=== PATIENT | male | born 1960 | race Hispanic/Latino ===

== ENCOUNTER 2025-02-20 09:34 | Emergency (ER) | payer OTHER, MEDICARE ==
[~2025-02-20] VITALS: Ht 180.3 cm; Wt 140.6 kg
[2025-02-20 09:55] VITALS: TEMP 98.2
[2025-02-20 10:10] LABS: IMMATURE GRANULOCYTE ABSOLUTE 0.02 K/uL (0-1); NUCLEATED RED BLOOD CELLS 0.0 % (0.0-0.19); PLATELET COUNT (AUTO) 354 K/uL (130-400); RED BLOOD CELL COUNT(AUTO) 5.11 MIL/uL (4.50-6.20); RED CELL DISTRIBUTION WIDTH 13.4 % (11.0-15.5); WHITE BLOOD COUNT (AUTO) 6.9 K/uL (4.8-10.8)
--- NOTE | 2025-02-20 10:17 | ERN ---
ED Note History of Present Illness Stated Complaint: CHEST PAIN TO LEFT SIDE Chief Complaint: Chest Pain Time Seen by MD: 10:05 Dictation: Patient is a 65-year-old male here with complaints of having a left chest wall spasm while he was driving this morning. He states it happened x2. he denies any radiation to his arm jaw back no nausea no vomiting. 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 He said he told him to come back in a month. He said that the doctor told him if he ever felt worse to go to the emergency room. He is moving here from [facility] in his going back for a 2nd opinion next week just wanted to stop in the make sure he was not having an acute myocardial infarction. Allergies: Coded Allergies: Penicillins (Unverified Allergy, Unknown, 02/20/25) aspirin (Unverified Allergy, Unknown, 02/20/25) Past Medical History Past Medical History: High Cholesterol, Hypertension Surgical History: None RN Note Reviewed/Agreed w/PFSH: Yes Review of System Dictation CONSTITUTIONAL: Negative except for HPI HEAD/FACE: Negative except for HPI EENT: Negative except for HPI RESPIRATORY: Negative except for HPI left chest pain GASTROINTESTINAL/ABDOMINAL: Negative except for HPI GENITOURINARY: Negative except for HPI MUSCULOSKELETAL: Negative except for HPI INTEGUMENTARY: Negative except for HPI NEUROLOGICAL/PSYCH: Negative except for HPI HEMATOLOGIC/LYMPHATIC: Negative except for HPI All Systems Negative, Except as noted above. 13 point review of systems assessed and all negative except for above. Initial Vital Sign VS Vital Signs Date Time Temp Pulse Resp B/P (MAP) Pulse Ox O2 Delivery O2 Flow Rate FiO2 02/20/25 09:36 98.1 72 19 119/64 96 Room Air 0 02/20/25 09:55 21 Physical Exam Dictation Vital Signs reviewed General Appearance: Alert, oriented x 3, no acute distress, well developed, nourished. No pain at this time. Head and Face: non-traumatic. Eyes: PERRL, pink conjunctivas, eyelid no trauma, anterior chamber with arcus senilis. Ears: Pinnas intact and no signs of trauma or erythema ear canals clear and no discharge TM no erythema Nose: No discharge, no bleeding. Oropharynx: Mouth normal, tongue pink, pharynx clear,no erythema, tonsils no exudates, no abscesses noted, mucous membrane moist Neck: Supple, non-tender, no thyromegaly, no masses, no JVD, no bruits Breast:Deferred Chest:No tenderness, no crepitus, no paradoxical movement, no retractions Lungs:Clear, well-ventilated, symmetric, no rales, no wheezing, no rhonchi, no stridor, good breath sounds bilaterally Heart: Regular rate, regular rhythm, no murmur, no gallops Vascular: no peripheral edema, Abdomen: Soft, positive bowel sounds, nondistended, no guarding, nontender, no rebound, no masses no hepatomegaly, no splenomegaly, no Gan's sign, no hernias. Rectal: Deferred Genital: Deferred Neurological: Normal speech, motor function intact, sensory function intact Musculoskeletal: Neck nontender, full range of motion, back nontender, full range of motion, Extremities: nontender, full range of motion Skin: Color pink, dry, no turgor, no rash, no lacerations, no abrasions, no contusions. Lymphatic: Deferred Results (Laboratory/Radiology) Laboratory/Radiology Laboratory Tests Test 02/20/25 09:55 02/20/25 10:18 02/20/25 10:52 White Blood Count 6.9 K/uL (4.8-10.8) Red Blood Count 5.11 MIL/uL (4.50-6.20) Hemoglobin 16.0 g/dL (14.0-18.0) Hematocrit 44.9 % (42-54) Mean Corpuscular Volume 87.9 fL (79-99) Mean Corpuscular Hemoglobin 31.3 pg (27.0-33.0) Mean Corpuscular Hemoglobin Concent 35.6 g/dL (32.0-36.0) Red Cell Distribution Width 13.4 % (11.0-15.5) Platelet Count 354 K/uL (130-400) Mean Platelet Volume 10.1 fL (7.5-10.5) Immature Granulocyte % (Auto) 0.3 % (0-1) Neutrophils (%) (Auto) 52.3 % (40.0-77.0) Lymphocytes (%) (Auto) 34.5 % (21.0-51.0) Monocytes (%) (Auto) 11.3 % (3.0-13.0) Eosinophils (%) (Auto) 1.0 % (0.0-8.0) Basophils (%) (Auto) 0.6 % (0.0-5.0) Neutrophils # (Auto) 3.6 K/uL (1.8-7.7) Lymphocytes # (Auto) 2.4 K/uL (1.0-4.8) Monocytes # (Auto) 0.8 K/uL (0.1-1.0) Eosinophils # (Auto) 0.07 K/uL (0.00-0.70) Basophils # (Auto) 0.04 K/uL (0.00-0.20) Absolute Immature Granulocyte (auto 0.02 K/uL (0-1) Nucleated Red Blood Cells 0.0 % (0.0-0.19) Sodium Level 137 mmol/L (136-145) Potassium Level 4.2 mmol/L (3.5-5.1) Chloride Level 99 mmol/L (101-111) L Carbon Dioxide Level 25 mmol/L (21-32) Blood Urea Nitrogen 16 mg/dL (7-18) Creatinine 1.1 mg/dL (0.5-1.3) Glomerular Filtration Rate Calc 75 mL/min (>90) Random Glucose 103 mg/dL (70-105) Total Calcium 10.1 mg/dL (8.5-10.1) Magnesium Level 1.90 mg/dL (1.80-2.40) Troponin I High Sensitivity 5 ng/L (4-75) 5 ng/L (4-75) B-Type Natriuretic Peptide < 5 pg/mL (0-100) Prothrombin Time 12.0 SEC (9.6-11.6) H Prothromb Time International Ratio 1.15 (0.85-1.15) Activated Partial Thromboplast Time 28.1 SEC (26.3-35.5) 1015/chest x-ray negative Labs Reviewed?: Yes EKG: (+) NSR EKG Comment: 941 EKG normal sinus rhythm/heart rate 71/axis normal/no ectopy 1044/2nd EKG normal sinus rhythm/heart rate 62/axis normal/no ectopy no acute changes from initial EKG HIGH SENSITIVITY TROPONIN IS LESS THAN FIVE, HEART SCORE TWO ED Course ED Course Orders Procedure Category Date Status Time Cbc With Differential LAB 02/20/25 Complete 09:45 Prothrombin Time With LAB 02/20/25 Complete INR 09:45 Chest 1vw RAD 02/20/25 Resulted 09:45 12 Lead Ekg Tracing- EKG 02/20/25 Resulted Technical 09:45 Magnesium LAB 02/20/25 Complete 09:45 Troponin I High LAB 02/20/25 Complete Sensitivity 09:45 Partial LAB 02/20/25 Complete Thromboplastin Time 09:45 Basic Metabolic Panel LAB 02/20/25 Complete 09:45 B-Type Natriuretic LAB 02/20/25 Complete Peptide 09:45 12 Lead Ekg Tracing- EKG 02/20/25 Resulted Technical 10:38 Troponin I High LAB 02/20/25 Complete Sensitivity 10:38 Vital Signs Date Time Temp Pulse Resp B/P (MAP) Pulse Ox O2 Delivery O2 Flow Rate FiO2 02/20/25 11:22 58 20 105/43 98 Room Air* 0 21 02/20/25 09:55 98.2 78 20 136/62 99 Room Air* 0 21 02/20/25 09:36 98.1 72 19 119/64 96 Room Air 0 1040/push EKG and troponin negative. We will follow to repeat to rule rule out ACS or NC. HEART Score Response (Comments) Value History: Low suspicion (0) 0 Age: 45-65yrs (+1) 1 Risk Factors: 1-2 risk factors (+1) 1 Initial Troponin: Normal limit (0) 0 Total 2 Medical Decision Making MDM MDM: Differential diagnosis: ACS/AMI/electrolyte imbalance/dehydration/pneumonia/bronchitis/anxiety/atypical chest Rationale: Tests considered and ordered secondary to shared decision making include: EKG/labs/radiology Previous outside records reviewed: Old ER visits. Risk of complication and/or morbidity or mortality of patient management: None Medications-Per medication reconciliation Need for hospitalization: Patient does not meet criteria for hospitalization. Need for emergency major/minor surgery: No There are no social concerns with this patient. Prescription drug management Prescriptions will include symptomatic care Patient's prior external medical records from other ER visits were reviewed by me as indicated. Prior testing and results from previous visits were reviewed. Prior tests were taken into account with medical decision making and resource utilization, independent historian/historians were used to obtain complete medical history. I independently interpreted the test that were performed, results were reviewed by me and considered findings on radiology if ordered. Medical management and examination interpretation discussions were had by me with other qualified healthcare professionals as indicated for the patient's care. DX & DISP Disposition: Discharge Departure Impression: Primary Impression: Atypical chest pain Additional Impression: Dehydration Condition: Stable Additional Instructions: FOLLOW-UP WITH PRIMARY CARE PROVIDER IN 1 TO 2 DAYS. TAKE MEDICATIONS DIRECTED HERE IN THE EMERGENCY ROOM. OKAY TO CONTINUE HOME MEDICATIONS UNLESS OTHERWISE DISCUSSED DURING YOUR VISIT IN THE EMERGENCY ROOM TODAY. RETURN TO YOUR NEAREST EMERGENCY ROOM IF SYMPTOMS WORSEN OR IF THERE IS NO IMPROVEMENT. CALL 911 IF YOU NEED IMMEDIATE ASSISTANCE. TAKE TYLENOL OR MOTRIN [id number] NEEDED AND IF NO CONTRAINDICATIONS ARE PRESENT. INCREASE ORAL HYDRATION. A WOUND CULTURE OR URINE CULTURE WAS ORDERED HERE IN THE EMERGENCY ROOM DEPARTMENT PLEASE FOLLOW-UP WITH PRIMARY CARE PROVIDER AND ADVISE THEM TO GET REPEAT PORTS FROM OUR FACILITY. IF YOU HAD ANY NITESH WRAP/SPLINTS THAT WERE APPLIED HERE, PLEASE DO NOT REMOVE THEM UNTIL YOU SEE YOUR PRIMARY CARE OR SPECIALTY. DIET AND ACTIVITY TOLERATED. FOLLOW UP WITH THE YOUR DOCTOR IN THE NEXT 3-4 DAYS FOR MANAGEMENT Referrals: SELF,REFERRAL (PCP) Time of Disposition: 11:38 I have reviewed the case, and I agree with, Diagnosis and Plan JEMMA ROBERTS Feb 20, 2025 10:17 DESTIN HARRISON DO Feb 20, 2025 13:49
[2025-02-20 10:21] LABS: CREATININE 1.1 mg/dL (0.5-1.3); GLOMERULAR FILTR. RATE CALC 75.0 mL/min (>90); GLUCOSE,RANDOM 103.0 mg/dL (70-105); SODIUM SERUM 137.0 mmol/L (136-145); UREA NITROGEN, BLOOD 16.0 mg/dL (7-18)
--- NOTE | 2025-02-20 10:28 | EKG ---
[facility] Test Date: 2025-02-20 Test Time: 09:42:28 Pat Name: JIM NIELSEN Department: ED Room: Gender: M Fuse Spooler: [id number] : 1960 Requested By: DESTIN HARRISON Order Number: [id number] Reading MD: Pablo Aguilar Measurements Intervals [place] Rate: 71 P: 22 CT: 155 QRS: -17 QRSD: 95 T: 9 QT: 379 QTc: 412 Interpretive Statements Sinus rhythm No previous ECG available for comparison Electronically Signed On 02-20-2025 12:50:58 CDT by Pablo Aguilar Please click the below link to view image of tracing.
[2025-02-20 10:36] LABS: INR 1.15 (0.85-1.15)
--- NOTE | 2025-02-20 10:51 | EKG ---
[facility] Test Date: 2025-02-20 Test Time: 10:44:43 Pat Name: JIM NIELSEN Department: ED Room: Gender: M Pbx Operator: [id number] : 1960 Requested By: JEMMA ROBERTS Order Number: [id number] Reading MD: Pablo Aguilar Measurements Intervals [place] Rate: 62 P: 16 GA: 164 QRS: -16 QRSD: 97 T: 8 QT: 396 QTc: 403 Interpretive Statements Sinus rhythm Compared to ECG 02/20/2025 09:42:28 No significant changes Electronically Signed On 02-20-2025 12:52:13 CDT by Pablo Aguilar Please click the below link to view image of tracing.
[2025-02-20 11:22] VITALS: BP 105/43; PULSE 58; RESP 20; O2SAT 98
--- NOTE | 2025-02-20 11:54 | HMCIMG ---
EXAM: CR Chest, 1 View. CLINICAL HISTORY: CP COMPARISON: None provided. FINDINGS: LUNGS: There is no mass, infiltrate, or acute pulmonary abnormality. PLEURAL SPACES: No evidence of pleural effusion or pneumothorax. MEDIASTINUM: The cardiomediastinal silhouette is within normal limits. BONES: No acute osseous abnormality. IMPRESSION: No acute cardiopulmonary pathology is evident. /[place]
== END 2025-02-20 11:54 | disposition home or self-care (01) ==
LOC: EDH 09:34 → EDBD 09:34 → EDH 11:54
DX: R07.89 Other chest pain (principal); E78.00 Pure hypercholesterolemia, unspecified; I10 Essential (primary) hypertension; E86.0 Dehydration; Z88.0 Allergy status to penicillin; Z88.6 Allergy status to analgesic agent
CPT/HCPCS: 36415; 71045; 80048; 83735; 83880; 84484; 85025; 85610; 85730; 93005; 99285